=== PATIENT | female | born 1955 | race Hispanic/Latino ===

== ENCOUNTER 2022-04-05 08:33 | Emergency (ER) | payer OTHER ==
[2022-04-05] MEDS ORDERED: Ibuprofen 600 MG TAB ONE (09:03)
== END 2022-04-05 10:00 | disposition home or self-care (01) ==
LOC: MADERS 08:33
DX: S93.411A Sprain of calcaneofibular ligament of right ankle, initial encounter (principal); S97.81XA Crushing injury of right foot, initial encounter; S80.02XA Contusion of left knee, initial encounter; I10 Essential (primary) hypertension; W17.89XA Other fall from one level to another, initial encounter